=== PATIENT | female | born 1955 | race Caucasian/White ===

== ENCOUNTER 2019-09-26 00:15 | Inpatient (IN) | payer BC ==
[~2019-09-26] VITALS: Ht 162.6 cm; Wt 132.7 kg
[2019-09-26] VITALS (7 sets, daily range): BP systolic 128–185; BP diastolic 48–95
[~2019-09-26 00:15] MED LIST: BREO ELLIPTA 21 EACH; FLOVENT HFA12 GM IH; LEVOXYL75 MCG PO; PAXIL10 MG; PREDNISONE 10 M10 MG PO; PROAIR HFA8.5 GM INH; TESSALON PERLE100 MG PO; TRIAMCINOLONE A15 G1 TP; ZOLOFT25 MG PO
[2019-09-26 00:47] LABS: ABSOLUTE EOSINOPHILS 0.6 thou/uL (0.0-0.7); ABSOLUTE LYMPHOCYTES 2.8 thou/uL (0.8-5.3); ABSOLUTE MONOCYTES 0.6 thou/uL (0.0-1.2); ABSOLUTE NEUTROPHILS 4.1 thou/uL (1.6-8.1); BASOPHILS 0.5 %; EOSINOPHILS 7.5 %; HEMATOCRIT 41.9 % (37.0-47.0); HEMOGLOBIN 14.2 gm/dL (12.0-15.0); LYMPHOCYTES 33.9 %; MCHC 33.9 g/dL (28.0-37.0); MCV 94.2 fL (80.0-100.0); MONOCYTES 7.7 %; MPV 10.2 fl. (7.2-11.1); NUCLEATED RBCS 0 /100WBC; PLATELET COUNT* 231 thou/uL (150-400); POLYS 50.4 %; RBC 4.45 mil/uL (4.20-5.00); WBC 8.1 thou/uL (4.0-11.0)
[2019-09-26 00:59] LABS: CALCIUM 8.9 mg/dL (8.5-10.1); POTASSIUM 3.8 mmol/L (3.5-5.1)
[2019-09-26 01:04] LABS: ALBUMIN 3.5 g/dL (3.4-5.0); TOTAL BILIRUBIN 0.3 mg/dL (<0.1-1.0); TOTAL PROTEIN 7.9 g/dL (6.4-8.2)
[2019-09-26 03:05] LABS: URINE BILIRUBIN NEGATIVE (Negative); URINE BLOOD NEGATIVE (Negative); URINE CLARITY CLEAR; URINE COLOR YELLOW; URINE GLUCOSE-RANDOM NEGATIVE (Negative); URINE KETONES NEGATIVE (Negative); URINE LEUKOCYTES-REFLEX NEGATIVE (Negative); URINE NITRITE-REFLEX NEGATIVE (Negative); URINE PROTEIN NEGATIVE (Negative); URINE UROBILINOGEN 0.2 E.U./dl (0.2-1.0)
--- NOTE | 2019-09-26 06:07 | NUR ---
PT ADMITTED TO FLOOR AT 0430 FROM ER. ASSESSMENTS COMPLETED AT BEDSIDE WITH PT PARTICAPATION, PLEASE SEE CHARTING FOR DETAILS. NO C/O PAIN OR DISCOMFORT NOTED AT THIS TIME. PT IS LOW FALL RISK AND UP AD TEE IN ROOM, CURRENTLY ON SPECIAL PERCAUTIONS PENDING COVID TESTING. PROVIDED PT WITH WATER AND MEAL TRAY, CURRENTLY IN BED WITH CALL LIGHT WITHIN REACH.
--- NOTE | 2019-09-26 18:44 | NUR ---
O2 TITRATED DOWN TO 3L/MIN. UP AD TEE. TOLERATING DIET.
[2019-09-27 02:00] VITALS: BP 158/55
[2019-09-27 05:01] LABS: CALCIUM 8.7 mg/dL (8.5-10.1); CREATININE 1.1 mg/dL (0.6-1.3); POTASSIUM 3.8 mmol/L (3.5-5.1)
--- NOTE | 2019-09-27 06:36 | NUR ---
PT HAD SOA AT START OF SHIFT, ENTERED PT ROOM WHO IS CURRENTLY PENDING COVID AND A BREATHING TX WAS BEING ADMINISTERED. PT ALSO HAD C/O ROOM TOO HOT. THE AC WAS NOT WORKING SO HAD PT MOVED TO A NEW ROOM. RECIEVED NEW ORDERS FOR BREATHING TREATMENTS AND PT WILL BE GOING TO ROOM 233 WHICH IS NEGATIVE PRESSURE FOR BREATHING TREATMENTS. PT ALSO HAD 2ND EPISODE OF SOA DID RECIEVED ORDERS TO START SOLU-MEDROL. PT REPORTED PAIN OF 8 OUT OF 10 TO ABD DURING SOA, ADMINISTERED PRN PAIN MEDICATION. CURRENTLY RESTING AT SIDE OF BED, NO CURRENT PAIN OR SOA NOTED BY PT.
[2019-09-27 08:00] VITALS: BP 157/68
--- NOTE | 2019-09-27 10:38 | EKG ---
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 /EPI
[2019-09-27] MEDS ORDERED: BREO ELLIPTA 21 EACH INH (11:31)
[2019-09-27] MEDS ORDERED: MEDROLDOSEPACK PO (11:31)
[2019-09-27 12:13] VITALS: BP 175/84
--- NOTE | 2019-09-27 15:02 | NUR ---
Pt is A&O. Resides at home with her kids. Independent. Pt has a home neb, no other DME. No hx of HH or SNF. Goal is home at dc. Per , plan to wean Pt off home o2 prior to dc, anticipate dc to home tomorrow. Following.
--- NOTE | 2019-09-27 16:10 | NUR ---
REPORT GIVEN TO PADMINI JAQUEZ.
[2019-09-27 17:08] VITALS: BP 116/74
[2019-09-27 20:40] VITALS: BP 135/66
[2019-09-28] VITALS: BP 145/64
[2019-09-28 04:00] VITALS: BP 120/66
--- NOTE | 2019-09-28 04:33 | NUR ---
NO ACUTE CHANGES THROUGHOUT SHIFT. ALL ROUNDINGS COMPLETED, ALL NEEDS MET, FULL ASSESSMENT COMPLETED CHARTED.
[2019-09-28 09:12] VITALS: BP 146/69
--- NOTE | 2019-09-28 10:21 | NUR ---
PT IS ALERT AND ORIENTED RESTING IN BED DENIES PAIN AT THIS TIME BUT HAS "STOMACH SPASMS FROM COUGHING SO HARD AT TIMES" UP AD TEE IV SALINE LOCKED WHEEZES NOTED T/O AND AUDIBLE WITHOUT STETHOSCOPE ON 2L NC CALL LIGHT IN REACH
[2019-09-28] MEDS ORDERED: IPRAT-ALBUT 0.5-3 ML INH (10:22)
[2019-09-28] MEDS ORDERED: PROAIR HFA8.5 GM INH (10:22)
[2019-09-28] MEDS ORDERED: DIFLUCAN150 M1 PO (10:23)
[2019-09-28] MEDS ORDERED: AZITHROMYCIN500 MG PO (10:23)
[2019-09-28 12:24] VITALS: BP 174/84
--- NOTE | 2019-09-28 16:35 | NUR ---
Pt's dc delayed, when RT walked Pt, Pt desat
[2019-09-28 16:49] VITALS: BP 127/65
[2019-09-28 20:20] VITALS: BP 150/87
[2019-09-29] VITALS: BP 177/91
--- NOTE | 2019-09-29 06:31 | NUR ---
NO ACUTE CHANGES THROUGHOUT SHIFT. ALL ROUNDINGS COMPLETED, ALL NEEDS MET, FULL ASSESSMENT COMPLETED CHARTED.
[2019-09-29 08:36] VITALS: BP 156/74
[2019-09-29 10:30] VITALS: BP 156/74
--- NOTE | 2019-09-29 14:24 | NUR ---
PT DISCHARGED WITH MOM, NO QUESTIONS OR CONCERNS.
== END 2019-09-29 14:24 | disposition home or self-care (01) | DRG 203 ==
LOC: M.ERS 00:15 → M.2W 03:05 → M.TBA-ER 03:05 → M.2W 03:05
PROVIDERS: Emergency Medicine; Nurse Practitioner Family; ADMIT Internal Medicine; ATTEND Internal Medicine
DX: J45.21 Mild intermittent asthma with (acute) exacerbation (principal); R73.9 Hyperglycemia, unspecified; J44.9 Chronic obstructive pulmonary disease, unspecified; Z20.828 Contact with and (suspected) exposure to other viral communicable diseases; Z79.899 Other long term (current) drug therapy; Z88.8 Allergy status to other drugs, medicaments and biological substances; Z87.891 Personal history of nicotine dependence; Z99.81 Dependence on supplemental oxygen; T38.0X5A Adverse effect of glucocorticoids and synthetic analogues, initial encounter; Y92.89 Other specified places as the place of occurrence of the external cause